=== PATIENT | female | born 1945 | race African-American/Black ===

== ENCOUNTER 2016-08-19 11:12 | Emergency (ER) | payer MEDICARE ==
[~2016-08-19] VITALS: Ht 162.6 cm; Wt 75.0 kg
[~2016-08-19 11:12] MED LIST: ACETAZOLAMID250 MG PO; ADVAIR DISK1 INH; ADVAIR DISK2 IN; AMOXICILLIN500 MG; AMOXICILLIN500 MG PO; ASPIRIN81 MG OR; AVELOX400 MG PO; BIAXIN500 MG OR; BUMETANIDE1 MG PO; CEPHALEXIN500 MG PO; CIPROFLOXACN500 MG PO; CITRACAL + D3 MAXIMU PO; COMBIVENT IN; COUMADIN3 MG PO; DIPYRIDAMOLE25 MG OR; DIPYRIDAMOLE25 MG PO; EC-NAPROSYN375 MG OR; EC-NAPROSYN375 MG PO; FLEXERIL OR; FLUZONE1 M1 IM; FOSAMAX70 MG OR; FOSAMAX70 MG PO; FUROSEMIDE40 MG PO; GLIPIZIDE5 MG OR; GLIPIZIDE5 MG PO; HCTZ PO; HYDROCHLOROT12.5 MG PO; IRON325 MG PO; KLOR-CON 1010 MEQ PO; LASIX 20 MG TAB20 MG PO; LISINOPRIL5 MG PO; LORTAB 10 PO; LOSARTAN POTASS50 MG PO; METFORMIN1000 MG PO; METFORMIN500 M1 OR; METFORMIN500 MG PO; NYSTATIN100000 M3 TOP; ONDANSETRON HCL4 MG PO; PRAVASTATIN SOD20 MG PO; PRAVASTATIN20 MG PO; PREDNISONE20 MG; PREVACID15 M1 OR; PRILOSEC20 MG/CAP PO; PROAIR HFA IN; SELENIUM SUL1 % EX; SPIRIVA HANDIHALER IN; SPIRONOLACT25 MG PO; TRIAMT PO; TYLENOL # 31 TAB PO; ULTRAM50 M1 PO; WARFARIN4 MG PO; ZAROXOLYN2.5 M1 PO; ZPAK PO; ZYLOPRIM100 MG PO; [UNRECOGNIZED DRUG - OTHER]; [UNRECOGNIZED DRUG - SUPPLY]; [UNRECOGNIZED DRUG - SUPPLY] NAS; tylenol#3 PO
[2016-08-19] MEDS ORDERED: LORTAB 5-325 MG1 TAB PO (14:29)
[2016-08-19] MEDS ORDERED: EC-NAPROSYN500 MG PO (14:29)
[2016-08-19 14:34] VITALS: BP 136/64
== END 2016-08-19 14:51 | disposition home or self-care (01) ==
LOC: ED 11:12
DX: S39.012A Strain of muscle, fascia and tendon of lower back, initial encounter (principal)

== ENCOUNTER 2016-10-28 13:53 | Emergency (ER) | payer MEDICARE ==
[~2016-10-28] VITALS: Ht 162.6 cm; Wt 77.3 kg
[~2016-10-28 13:53] MED LIST changes: +EC-NAPROSYN500 MG PO; +LORTAB 5-325 MG1 TAB PO
[2016-10-28 15:15] LABS: HEMOGLOBIN 10.5 g/dl (12.0-16.0); IMMATURE GRANULOCYTES 0.4 % (0.0-1.0); MEAN CELL VOLUME 78.7 fL CALC (80.0-100.0); MEAN CORPUSCULAR HGB 20.2 pG CALC (26.0-32.0); MEAN CORPUSCULAR HGB CONC 25.6 g/L CALC (32.0-36.0); NEUT# 3.67 thou/uL (2.00-7.15); RED BLOOD COUNT 5.21 mill/uL (4.20-5.60); RED CELL DISTRI WIDTH 26.6 % (11.5-15.5)
[2016-10-28] MEDS ORDERED: HYDROCHLOROT12.5 M1 PO (15:19)
[2016-10-28 15:28] LABS: ALBUMIN 3.4 g/dL (3.2-5.0); BILIRUBIN, TOTAL 2.5 mg/dL (0.0-1.4); CALCIUM 8.8 mg/dL (8.4-10.2); CREATININE 2.2 mg/dL (0.5-1.0); POTASSIUM 3.9 mmol/l (3.5-5.1); TOTAL PROTEIN 7.3 g/dL (6.3-8.2)
[2016-10-28 15:33] LABS: INTERNATIONAL NORMALIZED RATIO 1.7 RATIO (0.7-1.3); PROTHROMBIN TIME 19.6 SECONDS (9.0-12.5)
[2016-10-28 18:50] VITALS: BP 102/61
== END 2016-10-28 18:50 ==
LOC: ED 13:53 → ED-I 15:30 → ED 18:50
PROVIDERS: Emergency Medicine
DX: I82.621 Acute embolism and thrombosis of deep veins of right upper extremity (principal); I12.9 Hypertensive chronic kidney disease with stage 1 through stage 4 chronic kidney disease, or unspecified chronic kidney disease; N18.9 Chronic kidney disease, unspecified; R22.31 Localized swelling, mass and lump, right upper limb; R94.31 Abnormal electrocardiogram [ECG] [EKG]
CPT/HCPCS: J1650

== ENCOUNTER 2016-11-04 11:18 | Inpatient (IN) | payer MEDICARE ==
[~2016-11-04] VITALS: Ht 160 cm; Wt 80.0 kg
[~2016-11-04 11:18] MED LIST changes: +HYDROCHLOROT12.5 M1 PO
[2016-11-04 11:41] LABS: HEMOGLOBIN 9.8 g/dl (12.0-16.0); IMMATURE GRANULOCYTES 0.4 % (0.0-1.0); MEAN CELL VOLUME 81.3 fL CALC (80.0-100.0); MEAN CORPUSCULAR HGB 20.4 pG CALC (26.0-32.0); MEAN CORPUSCULAR HGB CONC 25.1 g/L CALC (32.0-36.0); NEUT# 3.17 thou/uL (2.00-7.15); RED BLOOD COUNT 4.8 mill/uL (4.20-5.60); RED CELL DISTRI WIDTH 27.2 % (11.5-15.5)
[2016-11-04 11:55] LABS: INTERNATIONAL NORMALIZED RATIO 1.9 RATIO (0.7-1.3); PROTHROMBIN TIME 21.1 SECONDS (9.0-12.5)
[2016-11-04 11:57] LABS: ALBUMIN 3.5 g/dL (3.2-5.0); BILIRUBIN, TOTAL 1.7 mg/dL (0.0-1.4); CALCIUM 8.8 mg/dL (8.4-10.2); CREATININE 1.2 mg/dL (0.5-1.0); POTASSIUM 4.7 mmol/l (3.5-5.1); TOTAL PROTEIN 7.3 g/dL (6.3-8.2)
[2016-11-04] MEDS ORDERED: COUMADIN4 MG PO (12:30)
[2016-11-04 14:26] LABS: URINE BILIRUBIN - DIPSTICK NEGATIVE (NEGATIVE); URINE BLOOD DIPSTICK NEGATIVE (NEGATIVE); URINE CLARITY CLEAR; URINE COLOR YELLOW; URINE GLUCOSE - DIPSTICK NEGATIVE (NEGATIVE); URINE KETONE NEGATIVE (NEGATIVE); URINE LEUK ESTERASE NEGATIVE (NEGATIVE); URINE NITRITE - DIPSTICK NEGATIVE (Negative); URINE PH 8.5 (4.5-8.0); URINE PROTEIN - DIPSTICK TRACE mg/dL (NEG-TRACE)
[2016-11-04 15:55] VITALS: BP 123/52
[2016-11-04] MEDS ORDERED: LASIX 20 MG TAB20 MG PO (16:47)
[2016-11-04 19:20] VITALS: BP 115/62
[2016-11-04 23:55] VITALS: BP 120/62
[2016-11-05 05:00] VITALS: BP 120/67
[2016-11-05 06:06] LABS: HEMATOCRIT 44.5 % (37.0-47.0); HEMOGLOBIN 10.6 g/dl (12.0-16.0); IMMATURE GRANULOCYTES 0.4 % (0.0-1.0); MEAN CELL VOLUME 84.6 fL CALC (80.0-100.0); MEAN CORPUSCULAR HGB 20.2 pG CALC (26.0-32.0); MEAN CORPUSCULAR HGB CONC 23.8 g/L CALC (32.0-36.0); NEUT# 3.1 thou/uL (2.00-7.15); RED BLOOD COUNT 5.26 mill/uL (4.20-5.60); RED CELL DISTRI WIDTH 27.1 % (11.5-15.5)
[2016-11-05 06:22] LABS: CALCIUM 9.2 mg/dL (8.4-10.2); CREATININE 1.2 mg/dL (0.5-1.0); POTASSIUM 4.5 mmol/l (3.5-5.1)
[2016-11-05 06:45] LABS: INTERNATIONAL NORMALIZED RATIO 1.8 RATIO (0.7-1.3); PROTHROMBIN TIME 20.8 SECONDS (9.0-12.5)
[2016-11-05 08:35] VITALS: BP 139/69
[2016-11-05 16:20] VITALS: BP 132/69
[2016-11-05 20:10] VITALS: BP 100/65
[2016-11-06] VITALS (7 sets, daily range): BP systolic 92–118; BP diastolic 57–70
[2016-11-06 05:29] LABS: INTERNATIONAL NORMALIZED RATIO 2.5 RATIO (0.7-1.3); PROTHROMBIN TIME 28.8 SECONDS (9.0-12.5)
[2016-11-06 11:57] LABS: CALCIUM 8.7 mg/dL (8.4-10.2); CREATININE 1.2 mg/dL (0.5-1.0)
[2016-11-07 04:53] VITALS: BP 98/61
[2016-11-07 05:21] LABS: HEMATOCRIT 40.2 % (37.0-47.0); HEMOGLOBIN 9.8 g/dl (12.0-16.0); IMMATURE GRANULOCYTES 0.4 % (0.0-1.0); MEAN CELL VOLUME 84.8 fL CALC (80.0-100.0); MEAN CORPUSCULAR HGB 20.7 pG CALC (26.0-32.0); MEAN CORPUSCULAR HGB CONC 24.4 g/L CALC (32.0-36.0); NEUT# 2.82 thou/uL (2.00-7.15); RED BLOOD COUNT 4.74 mill/uL (4.20-5.60); RED CELL DISTRI WIDTH 26.8 % (11.5-15.5)
[2016-11-07 05:27] LABS: INTERNATIONAL NORMALIZED RATIO 2.6 RATIO (0.7-1.3); PROTHROMBIN TIME 30.1 SECONDS (9.0-12.5)
[2016-11-07 05:28] LABS: CALCIUM 8.5 mg/dL (8.4-10.2); CREATININE 1.1 mg/dL (0.5-1.0); POTASSIUM 4.2 mmol/l (3.5-5.1)
[2016-11-07 07:44] VITALS: BP 133/63
[2016-11-07 11:01] VITALS: BP 110/64
[2016-11-07] MEDS ORDERED: COUMADIN4 MG PO (11:16)
[2016-11-07] MEDS ORDERED: LEVAQUIN500 MG PO (11:16)
== END 2016-11-07 13:19 | DRG 190 ==
LOC: ENPENDDIS → ED 11:18 → ED-I 11:46 → ED 14:44 → MS2 14:45
PROVIDERS: Emergency Medicine; Internal Medicine; ADMIT Internal Medicine; ATTEND Internal Medicine
DX: J44.0 Chronic obstructive pulmonary disease with (acute) lower respiratory infection (principal); J18.9 Pneumonia, unspecified organism; E11.22 Type 2 diabetes mellitus with diabetic chronic kidney disease; I13.0 Hypertensive heart and chronic kidney disease with heart failure and stage 1 through stage 4 chronic kidney disease, or unspecified chronic kidney disease; I50.32 Chronic diastolic (congestive) heart failure; Z99.81 Dependence on supplemental oxygen; N18.3 Chronic kidney disease, stage 3 (moderate); E78.5 Hyperlipidemia, unspecified; I48.91 Unspecified atrial fibrillation; R53.81 Other malaise; Z79.01 Long term (current) use of anticoagulants; Z86.718 Personal history of other venous thrombosis and embolism; Z79.84 Long term (current) use of oral hypoglycemic drugs; Z87.891 Personal history of nicotine dependence
CPT/HCPCS: Q9967

== ENCOUNTER 2017-01-21 18:38 | Inpatient (IN) | payer MEDICARE ==
[~2017-01-21] VITALS: Ht 160 cm; Wt 69.6 kg
[~2017-01-21 18:38] MED LIST changes: +COUMADIN4 MG PO; +LEVAQUIN500 MG PO
[2017-01-21 20:33] LABS: HEMATOCRIT 45.3 % (37.0-47.0); HEMOGLOBIN 11.9 g/dl (12.0-16.0); IMMATURE GRANULOCYTES 0.3 % (0.0-1.0); MEAN CELL VOLUME 96.4 fL CALC (80.0-100.0); MEAN CORPUSCULAR HGB 25.3 pG CALC (26.0-32.0); MEAN CORPUSCULAR HGB CONC 26.3 g/L CALC (32.0-36.0); NEUT# 1.8 thou/uL (2.00-7.15); RED BLOOD COUNT 4.7 mill/uL (4.20-5.60); RED CELL DISTRI WIDTH 16.7 % (11.5-15.5)
[2017-01-21 20:43] LABS: ALBUMIN 3.7 g/dL (3.2-5.0); ALKALINE PHOSPHATASE 88 u/l (38-126); ANION GAP 12 (6-22 (CALC)); BILIRUBIN, TOTAL 1.5 mg/dL (0.0-1.4); BUN 26 mg/dL (8-23); BUN/CREATININE RATIO 28 (12-20 (CALC)); CARBON DIOXIDE 37 mmol/l (22-30); CHLORIDE 99 mmol/l (95-108); CREATININE 0.9 mg/dL (0.5-1.0); GFR > 60 ML/MIN (>=60 (CALC)); GFR FOR AFR.AMER. > 60 ML/MIN (>=60 (CALC)); GLUCOSE 81 mg/dL (82-115); POTASSIUM 4.9 mmol/l (3.5-5.1); SGOT/AST 23 u/l (9-36); SGPT/ALT 19 u/l (11-66); SODIUM 143 mmol/l (137-146); TOTAL PROTEIN 7.8 g/dL (6.3-8.2)
[2017-01-21 20:55] LABS: MYOGLOBIN 42 ng/mL (0 - 62)
[2017-01-21 22:30] VITALS: BP 146/79
[2017-01-21 22:45] VITALS: BP 152/69
[2017-01-21 23:00] VITALS: BP 147/74
[2017-01-21 23:15] VITALS: BP 140/64
[2017-01-21 23:45] VITALS: BP 135/81
[2017-01-22] VITALS (20 sets, daily range): BP systolic 110–162; BP diastolic 47–83
[2017-01-22 06:05] LABS: INTERNATIONAL NORMALIZED RATIO 1.2 RATIO (0.7-1.3); PROTHROMBIN TIME 12.7 SECONDS (9.0-12.5)
[2017-01-22 07:36] LABS: URINE BILIRUBIN - DIPSTICK NEGATIVE (NEGATIVE); URINE BLOOD DIPSTICK NEGATIVE (NEGATIVE); URINE CLARITY CLEAR; URINE COLOR YELLOW; URINE GLUCOSE - DIPSTICK NEGATIVE (NEGATIVE); URINE KETONE NEGATIVE (NEGATIVE); URINE LEUK ESTERASE NEGATIVE (NEGATIVE); URINE NITRITE - DIPSTICK NEGATIVE (Negative); URINE PH 5.5 (4.5-8.0); URINE PROTEIN - DIPSTICK TRACE mg/dL (NEG-TRACE); URINE UROBILINOGEN - DIPSTICK 0.2 E.U./dL (0.2)
[2017-01-22 10:34] LABS: BUN 25 mg/dL (8-23); BUN/CREATININE RATIO 26 (12-20 (CALC)); CALCIUM 9.1 mg/dL (8.4-10.2); CARBON DIOXIDE 35 mmol/l (22-30); CHLORIDE 101 mmol/l (95-108); GFR 54 ML/MIN (>=60 (CALC)); GFR FOR AFR.AMER. > 60 ML/MIN (>=60 (CALC)); GLUCOSE 105 mg/dL (82-115); SODIUM 144 mmol/l (137-146)
[2017-01-22 10:36] LABS: ANION GAP 13 (6-22 (CALC)); POTASSIUM 5.2 mmol/l (3.5-5.1)
[2017-01-23] VITALS (12 sets, daily range): BP systolic 110–165; BP diastolic 48–94
[2017-01-23 05:43] LABS: HEMATOCRIT 40.7 % (37.0-47.0); HEMOGLOBIN 11.2 g/dl (12.0-16.0); IMMATURE GRANULOCYTES 1.1 % (0.0-1.0); MEAN CELL VOLUME 92.9 fL CALC (80.0-100.0); MEAN CORPUSCULAR HGB 25.6 pG CALC (26.0-32.0); MEAN CORPUSCULAR HGB CONC 27.5 g/L CALC (32.0-36.0); NEUT# 3.12 thou/uL (2.00-7.15); RED BLOOD COUNT 4.38 mill/uL (4.20-5.60); RED CELL DISTRI WIDTH 16.5 % (11.5-15.5)
[2017-01-23 05:45] LABS: BUN 28 mg/dL (8-23); BUN/CREATININE RATIO 28 (12-20 (CALC)); CALCIUM 8.7 mg/dL (8.4-10.2); CHLORIDE 96 mmol/l (95-108); GFR 54 ML/MIN (>=60 (CALC)); GFR FOR AFR.AMER. > 60 ML/MIN (>=60 (CALC)); GLUCOSE 136 mg/dL (82-115); INTERNATIONAL NORMALIZED RATIO 1.4 RATIO (0.7-1.3); PROTHROMBIN TIME 15.6 SECONDS (9.0-12.5); SODIUM 142 mmol/l (137-146)
[2017-01-23 05:50] LABS: ANION GAP 11 (6-22 (CALC)); POTASSIUM 5.2 mmol/l (3.5-5.1)
[2017-01-23 05:52] LABS: CARBON DIOXIDE 40 mmol/l (22-30)
[2017-01-24 04:25] VITALS: BP 159/67
[2017-01-24 08:48] VITALS: BP 148/66
[2017-01-24 09:29] LABS: INTERNATIONAL NORMALIZED RATIO 1.8 RATIO (0.7-1.3); PROTHROMBIN TIME 20.1 SECONDS (9.0-12.5)
[2017-01-24 11:37] VITALS: BP 151/62
[2017-01-24] MEDS ORDERED: MEDDOSEPAK PO (14:57)
== END 2017-01-24 13:23 | disposition home or self-care (01) | DRG 189 ==
LOC: ED 18:38 → ED-I 20:39 → ED 21:09 → ICU 21:10 → MS2 01-23 14:46
PROVIDERS: Emergency Medicine; ADMIT Internal Medicine; ATTEND Internal Medicine
PROC: 5A09357 Assistance with Respiratory Ventilation, Less than 24 Consecutive Hours, Continuous Positive Airway Pressure (ICD-10-PCS; principal; 2017-01-21)
DX: J96.22 Acute and chronic respiratory failure with hypercapnia (principal); I13.0 Hypertensive heart and chronic kidney disease with heart failure and stage 1 through stage 4 chronic kidney disease, or unspecified chronic kidney disease; I50.22 Chronic systolic (congestive) heart failure; E11.22 Type 2 diabetes mellitus with diabetic chronic kidney disease; J44.1 Chronic obstructive pulmonary disease with (acute) exacerbation; I27.2 Other secondary pulmonary hypertension; N18.9 Chronic kidney disease, unspecified; E78.5 Hyperlipidemia, unspecified; I48.91 Unspecified atrial fibrillation; I08.0 Rheumatic disorders of both mitral and aortic valves; R79.1 Abnormal coagulation profile; Z86.718 Personal history of other venous thrombosis and embolism; Z99.81 Dependence on supplemental oxygen; Z87.891 Personal history of nicotine dependence; Z79.01 Long term (current) use of anticoagulants

== ENCOUNTER 2017-05-03 10:31 | Inpatient (IN) | payer MEDICARE ==
[~2017-05-03] VITALS: Ht 160 cm; Wt 78.5 kg
[2017-05-03] VITALS (7 sets, daily range): BP systolic 107–148; BP diastolic 56–77
[~2017-05-03 10:31] MED LIST changes: +MEDDOSEPAK PO
--- NOTE | 2017-05-03 10:43 | NUR ---
PATIENT TO ROOM VIA WHEELCHAIR AND PHYSICIAN AT BEDSIDE FOR EVALUATION
--- NOTE | 2017-05-03 10:45 | NUR ---
PT SPEAKING IN COMPLETE SENTENCES WITH NO DIFFICULTY. PT DENIES ANY CP AT THIS TIME. SAO2 NOTED AT 79% ON [address] FONSECA TOLD HER TO USE 3 L NC. SAO2 INCREASED TO 82% ON 3 L NC. LS DIMINISHED BILATERALLY AND CRACKLES/WHEEZES NOTED. RT AT BEDSIDE FOR ABG AND NEB TX X 3. WILL COTINUE TO MONITOR.
[2017-05-03 11:02] LABS: HEMATOCRIT 42.8 % (37.0-47.0); HEMOGLOBIN 11.5 g/dl (12.0-16.0); IMMATURE GRANULOCYTES 0.3 % (0.0-1.0); MEAN CELL VOLUME 100.9 fL CALC (80.0-100.0); MEAN CORPUSCULAR HGB 27.1 pG CALC (26.0-32.0); MEAN CORPUSCULAR HGB CONC 26.9 g/L CALC (32.0-36.0); NEUT# 2.66 thou/uL (2.00-7.15); RED BLOOD COUNT 4.24 mill/uL (4.20-5.60); RED CELL DISTRI WIDTH 15.1 % (11.5-15.5)
[2017-05-03] MEDS ORDERED: TYLENOL # 31 TA1 PO (11:06)
--- NOTE | 2017-05-03 11:08 | NUR ---
PT PLACED ON BIPAP. RT AND MD AT [facility]. PT DENIES ANY CHEST PAIN AT THIS TIME.
--- NOTE | 2017-05-03 11:11 | NUR ---
PT. PLACED ON BIPAP DUE TO RESPIRATORY DISTRESS.
--- NOTE | 2017-05-03 11:32 | NUR ---
SAO2 95% ON BIPAP. PT RESTING COMFORTABLY. PT AND HUISBAND AWARE OF PLAN OF CARE. CALL LEVIN WITHIN REACH.
--- NOTE | 2017-05-03 11:48 | NUR ---
SAO2 96% ON BIPAP. HR 82, BP 100/62. PT RESTING COMFORTABLY IN STRETCHER. WILL COTINUE TO MONITOR.
[2017-05-03 11:52] LABS: ALBUMIN 3.8 g/dL (3.2-5.0); BILIRUBIN, TOTAL 1.2 mg/dL (0.0-1.4); CREATININE 1.2 mg/dL (0.5-1.0); POTASSIUM 5.1 mmol/l (3.5-5.1); TOTAL PROTEIN 7.3 g/dL (6.3-8.2)
--- NOTE | 2017-05-03 12:20 | NUR ---
PT IN STRETCHER WITH HOB ELEVATED SAO2 94% ON BIPAP. AT BEDSIDE/ PT DENIES ANY NEEDS AT THIS TIME. CALL LEVIN WITHIN REACH.
--- NOTE | 2017-05-03 12:50 | NUR ---
RT AT BEDSIDE FOR REPEAT ABG.
--- NOTE | 2017-05-03 13:34 | NUR ---
PT RESTING WITH EYES CLOSED SAO2 94% ON BIPAP. PT AWAKENS TO VERBAL STIMULI AND IS A&O X 3. PT DENIES ANY PAIN AND "FEELS BETTER".
--- NOTE | 2017-05-03 13:54 | NUR ---
RT AT BEDSIDE TO RE-DRAW ABG.
--- NOTE | 2017-05-03 14:30 | NUR ---
PT RESTING COMFORTABLY IN STRETCHER WITH HOB ELEVATED. PT FERMIN KE AND ALERT, TOLERATING BIPAP MASK WELL. SA02 95% ON BIPAP. AWARE OF WAIT TIME.
--- NOTE | 2017-05-03 14:45 | NUR ---
AT BEDSIDE, PT REMOVED FROM BIPAP BY DR FORREST. PT DENIES ANY SOB OR PAIN AT THIS TIME. 3 L NC PLACED ON PT AND SA02 95%. PT SPEAKING CLEARLY AND IN FULL SENTENCES. PT REQUESTING SOMETHING TO EAT. WILL CONTINUE TO MONITOR.
--- NOTE | 2017-05-03 14:56 | NUR ---
SBAR PRINTED TO FLOOR
--- NOTE | 2017-05-03 15:40 | NUR ---
REPORT CALLED TO CESARIO ARRIOLA PT TO BE TRANSPORTED TO ICU IN 15 MINS.
--- NOTE | 2017-05-03 16:02 | NUR ---
Admission Note Report Given to: CESARIO ARRIOLA LPN Transported by: Wheelchair X Stretcher Transported with: X Nurse Transporter X Patent IV X O2 X Manager Truck
--- NOTE | 2017-05-03 16:05 | NUR ---
PT ADMITTED TO ICU BED 8 VIA STRETCHER FROM ER, PT ALERT AND ORIENTED WITH SOME HEARING DEFICIT NOTED, PT ABLE TO STAND OFF STRETCHER WITH 2 MOD ASSIST, TO SCALE, (KNEES BUCKLED WITH ASSIST ABLE TO MAINTAIN STANDING) THEN TRANSFERRED TO BED, REPOSITIONED FOR COMFORT, PT WEARING ADULT BRIEF, BUT DENIES BEING COMPLETELY INCONTINENT, LUNGS ARE DIMINSHED BUT CLEAR WITH NO SHORTNESS OF BRETAH OR DISTRESS NOTED, O2 AT 3L VIA NC, WITH PT ADMITTING TO BEING O2 DEPENDENT AT HOME FOR "ABOUT A YEAR" ABD SOFT BS ACTIVE WITH LAST BM YESTERDAY PER PT, STATES SHE HADN'T BEEN FEELING GREAT FOR ABOUT A WEEK, WITH COUGHING AND RECENTLY FELT WEAK WITHA FEW FALLS SO "MY TOLD ME I NEEDED TO COME TO THE HOSPITAL" SOME TRACE EDEMA NOTED TO BILATERAL LE WITH PPPB BUT WEAK, BP STABLE TELE READING SR-ST RATE 90-120, SAFETY MEASURES INTRODUCED, ORIENTED TO ROOM AND UNIT, ALL MONITORING EQUIPMENT EXPLAINED PRIOR TO APPLICATION. CALL LEVIN WITHIN REACH, EASILY VISIBLE FROM NURSES STATION FOR SAFETY.
--- NOTE | 2017-05-03 17:05 | NUR ---
PT FOUND WITH O2 OFF, SATS 55-60% QUICKLY RECOVERS WHEN O2 REAPPLIED, REMINDED TO THE IMPORTANCE OF KEEPING O2 IN HER NOSE, VERBALIZES UNDERSTANDING, HAS MOIST COUGH, ENCOURGAED TO PROVIDE SPECIMEN IF POSSIBLE, CALL LEVIN REMAINS WITHIN REACH
[2017-05-03 18:05] LABS: PROTHROMBIN TIME 11.7 SECONDS (9.0-12.5)
--- NOTE | 2017-05-03 18:10 | NUR ---
PT'S AT BEDSIDE
--- NOTE | 2017-05-03 19:10 | NUR ---
awake. denies resp distress. o2 cont per nc. diminished breath sounds bilat. orthopedic physical therapist shows sinus tach pacs. #22 lac saline lock. po fluids taken fair. voids incont. fall precautions cont. @ bedside.
--- NOTE | 2017-05-03 22:00 | NUR ---
awake. no resp diff. has freq loose nonprod cough. monitoring engineer shows sinus rhythm.
[2017-05-04] VITALS (15 sets, daily range): BP systolic 102–133; BP diastolic 53–77
--- NOTE | 2017-05-04 00:10 | NUR ---
lab here. blood drawn.
--- NOTE | 2017-05-04 02:00 | NUR ---
EYES CLOSED. NO DISTRESS. HAS FREQ LOOSE NONPROD COUGH.
--- NOTE | 2017-05-04 04:00 | NUR ---
resting quietly. no distress. monitor and storage bin tender shows sinus rhythm pacs.
[2017-05-04 05:11] LABS: URINE BILIRUBIN - DIPSTICK NEGATIVE (NEGATIVE); URINE BLOOD DIPSTICK NEGATIVE (NEGATIVE); URINE COLOR YELLOW; URINE GLUCOSE - DIPSTICK NEGATIVE (NEGATIVE); URINE KETONE NEGATIVE (NEGATIVE); URINE LEUK ESTERASE NEGATIVE (NEGATIVE); URINE NITRITE - DIPSTICK NEGATIVE (Negative); URINE PROTEIN - DIPSTICK NEGATIVE (NEG-TRACE); URINE SPECIFIC GRAVITY 1.025; URINE UROBILINOGEN - DIPSTICK 0.2 E.U./dL (0.2)
[2017-05-04 05:13] LABS: URINE CLARITY CLEAR
--- NOTE | 2017-05-04 06:00 | NUR ---
lab here. blood drawn.
[2017-05-04 06:25] LABS: HEMATOCRIT 42.7 % (37.0-47.0); HEMOGLOBIN 11.5 g/dl (12.0-16.0); MEAN CELL VOLUME 100.5 fL CALC (80.0-100.0); MEAN CORPUSCULAR HGB 27.1 pG CALC (26.0-32.0); MEAN CORPUSCULAR HGB CONC 26.9 g/L CALC (32.0-36.0); RED BLOOD COUNT 4.25 mill/uL (4.20-5.60)
[2017-05-04 06:40] LABS: CALCIUM 9.1 mg/dL (8.4-10.2); CHOLESTEROL HDL RATIO 2.6 (<4.4 (CALC)); CREATININE 1.2 mg/dL (0.5-1.0); INTERNATIONAL NORMALIZED RATIO 1.1 RATIO (0.7-1.3); PROTHROMBIN TIME 12.5 SECONDS (9.0-12.5)
[2017-05-04 06:44] LABS: POTASSIUM 5.4 mmol/l (3.5-5.1)
[2017-05-04] MEDS ORDERED: WARFARIN3 MG PO (07:30)
--- NOTE | 2017-05-04 07:30 | NUR ---
PT SITTING UP ON BEDSIDE COMMODE, ASSISTED BACK TO BED AFTER SELF KIARA CARE PROVIDED, REPOSITIONED FOR COMFORT, AM ASSESSMENT COMPLETED, PT IS HARD OF HEARING, VS STABLE, TELE READING SR RATE 70-80'S, PT HAS SOME EDEMA NOTED TO BLE, PPPB, SAFETY MEASURES REINFORCED, CALL LEVIN WITHIN REACH. ENCOURGAED TO CALL FOR ANY NEEDED ASSISTANCE.
--- NOTE | 2017-05-04 07:55 | NUR ---
SET UP ASSIST PROVIDED FOR AM MEAL, OPENED APPLE JUICE PER PT REQUEST, DECLINES MILK, CALL LEVIN WITHIN REACH.
--- NOTE | 2017-05-04 08:35 | NUR ---
ATTEMPTS TO GET PT TO TAKE MEDICATIONS UNSUCCESSFUL, PT AROUSE TO LOUD VERBAL STIMULATION, AROUSES AND STATES SHE WANTS A RAG TO WASH OUT HER MOUTH PRIOR TO TAKING MEDS, MOIST COOL WASHRAG PROVIDED, PT STATES ITS COLD, WHEN ASKED IF SHE WANTS A WARM RAG PT STATES YEAH THEN CLOSES EYES AGAIN, WHEN PROVIDED WITH WARM WASH RAG PT STATES "I'M ABOUT TIRED OF YOU" EDUCATED REGARDING TAKING MEDICATIONS AND THE TIME ORDERED, PT CLOSES EYES AGAIN,
--- NOTE | 2017-05-04 09:29 | NUR ---
MD AT BEDSIDE EARLIER, BP 152/74 PULSE OX 97%, TELE READING SR RATE IN THE 80-90'S, NODS OFF EASILY BUT AROUSES TO LOUD VERBAL STIMULI AND PAINFUL STIMULI, PT REMAINS DIFFICULT TO AROUSE, THEN ATTEMPTS TO SIT UP ON EDGE OF BED AND STAND, ASSIST PROVIDED PT HAS POOR BALANCE WITH UNSTEADY STANCE, BACK TO BED WITH MOD ASSIST, RT AT BEDSIDE, ABG ORDERED AND COMPLETED AT THIS TIME
--- NOTE | 2017-05-04 10:15 | NUR ---
PT AROUSES TO VERBAL STIMULI, BUT NODS OFF EASILY, VS REMAIN STABLE, DECLINED AM MEAL, CALL LEVIN WITHIN REACH
--- NOTE | 2017-05-04 11:13 | NUR ---
SPOUSE CURRENTLY AT BEDSIDE, PT REMAINS DROWSY BUT AROUSES AND TALKS TO SPOUSE INTERMITTENLY, PT GETS AGGRAVATED WITH SPOUSE AT BEDSIDE, ACCU CHECK COMPLETED BS 78, GRAPE JUICE PROVIDED PER PT REQUEST. WILLMONITOR INTAKE
--- NOTE | 2017-05-04 11:36 | NUR ---
SET UP ASSIST PROVIDED FOR AFTERNOON MEAL, ASSIST OFFERED, SPOUSE AT BEDSIDE VERBALIZES HE WILL HELP HER.
--- NOTE | 2017-05-04 12:31 | NUR ---
WITH SPOUSE ASSIST PT ATE 75% OF MEAL, CONTINUES TP HAVE WET COUGH, COMMERCIAL ARTIST OF ANTYTHING OTHER THAN CLEAR SECRETIONS, CALL LEVIN WITHIN REACH
--- NOTE | 2017-05-04 13:35 | NUR ---
PT DOZING INTERMITTENTLY, VS STABLE CONTINEUS TO TOLERATE NC, CALL LEVIN WITHIN REACH
--- NOTE | 2017-05-04 14:46 | NUR ---
PT OOB TO BSC , INCONTINENT OF LARG AMOUNT URINE, KIARA CARE PROVIDED AND LINENS ON BED CHANGED, BACK TO BED WITH 2 MOD ASSIST, CALL LEVIN WITHIN REACH
--- NOTE | 2017-05-04 16:25 | NUR ---
PT MORE AWAKE AND RESTING IN BED, NOT COOPERASTIVE WITH CASE MGMT WHO WAS AT BEDSIDE EARLIER, CALL LEVIN WITHIN REACH, WILL CONTINUE TO MONITOR.
--- NOTE | 2017-05-04 17:40 | NUR ---
SET UP ASSIST PROVIDED FOR PM MEAL, CONTINUES TO DOZE INTERMITTENTLY, CALL LEVIN WITHIN REACH
--- NOTE | 2017-05-04 19:10 | NUR ---
awake. denies distress. o2 cont per nc. breath sounds diminished bilat. has loose nonprod cough. cardiac/vascular sonographer shows sinus rhythm pacs. #20 lac saline lock. po fluids taken fair. voids incont. @ bedside. fall precautions cont.
--- NOTE | 2017-05-04 22:00 | NUR ---
awake. incont. pull-up diaper changed. verona care given.
[2017-05-05] VITALS (9 sets, daily range): BP systolic 104–143; BP diastolic 65–77
--- NOTE | 2017-05-05 00:01 | NUR ---
awake. no distress. has freq loose nonprod cough. business instructor shows sinus rhythm pacs pvcs.
--- NOTE | 2017-05-05 02:00 | NUR ---
awake. watching infomercials. no resp distress. classroom monitor shows sinus rhythm pacs pvcs.
--- NOTE | 2017-05-05 04:00 | NUR ---
remains awake. takes short naps. no distress. o2 cont.
--- NOTE | 2017-05-05 05:15 | NUR ---
lab here. blood drawn.
[2017-05-05 05:44] LABS: HEMATOCRIT 39.7 % (37.0-47.0); HEMOGLOBIN 10.4 g/dl (12.0-16.0); IMMATURE GRANULOCYTES 0.3 % (0.0-1.0); MEAN CELL VOLUME 100.8 fL CALC (80.0-100.0); MEAN CORPUSCULAR HGB 26.4 pG CALC (26.0-32.0); MEAN CORPUSCULAR HGB CONC 26.2 g/L CALC (32.0-36.0); NEUT# 2.38 thou/uL (2.00-7.15); RED BLOOD COUNT 3.94 mill/uL (4.20-5.60); RED CELL DISTRI WIDTH 15.1 % (11.5-15.5)
[2017-05-05 05:53] LABS: BUN 42 mg/dL (8-23); BUN/CREATININE RATIO 40 (12-20 (CALC)); CARBON DIOXIDE 38 mmol/l (22-30); CHLORIDE 101 mmol/l (95-108); GFR 54 ML/MIN (>=60 (CALC)); GFR FOR AFR.AMER. > 60 ML/MIN (>=60 (CALC)); GLUCOSE 78 mg/dL (82-115); MAGNESIUM 2.1 mg/dL (1.6-2.3); SODIUM 144 mmol/l (137-146)
[2017-05-05 05:55] LABS: ANION GAP 11 (6-22 (CALC)); POTASSIUM 5.5 mmol/l (3.5-5.1)
--- NOTE | 2017-05-05 05:58 | NUR ---
no acute change in condition. has slept poorly. took short naps.
[2017-05-05 05:59] LABS: INTERNATIONAL NORMALIZED RATIO 1.1 RATIO (0.7-1.3); PROTHROMBIN TIME 12.2 SECONDS (9.0-12.5)
--- NOTE | 2017-05-05 06:40 | NUR ---
REPORT RECEIVED FROM JAKUB LUCIANO. PT RESTLESS IN BED, AWAKE AND ALERT. REQUESTING TO BRIEFLY SIT AT SIDE OF BED. SPO2 IS ALARMING AT 89%. PT IS MOUTH BREATHING. NEEDS CONTINUAL RE-INFORCEMENT. PULSE OX MONITOR CHANGED TO DIFFERENT FINGER, STILL REMAINS AT 89-93%. PT ASSESSMENT PERFORMED. DENIES PAIN, OR NEEDS. CALL LIGHT WITHIN REACH. SAFETY REVIEWED. INSTRUCTED PT TO CALL FOR ASSISTANCE. STATES UNDERSTANDING.
--- NOTE | 2017-05-05 08:06 | NUR ---
PT SAT-UP FOR BREAKFAST, PANCAKES CUT INTO SMALL PIECES AND JUICE OPENED FOR PATIENT. PT STATES "I CANT HOLD THINGS FOR VERY LONG." ACCUCHECK OBTAINED AT THIS TIME AND IS 64. PT EXHIBITS NO S/S OF HYPOGLYCEMIA, FUNCTIONING APPROPRIATELY, MAKING SENSE, SKIN IS DRY AND INTACT. HEART RATE IS WNL FOR PT. PT ABLE TO FEED SELF. CALL LIGHT WITHIN REACH. INSTRUCTED PT TO CALL FOR ASSISTANCE, PT VERBALIZES UNDERSTANDING.
--- NOTE | 2017-05-05 09:30 | NUR ---
PT ASSISTED FROM THE BED TO THE BSC, CLEANSED AND GIVEN PARTIAL BATH. KIARA CARE INPARTICULAR PROVIDED, R/T INCONTINENCE IN BRIEF. PT GIVEN WASH RAG AND INSTRUCTED TO SELF BATH. PT STATES "HOW ABOUT YOU JUST DO THE JOB YOU'RE SUPPOSED TO DO." PT REMINDED THAT SHE IS ABLE AND STRONGLY ENCOURAGED TO ASSIST IN HER CARE ALSO. PT DENIES ANY SPECIAL ASSISTANCE WHEN AT HOME. SAFELY ASSISTED FROM BSC TO CHAIR WHERE PT INSTRUCTED TO SIT, AND PERFORM THE REST OF MORNING ADL'S. PT CONTINUES TO BE DERROGATORY. CALL LIGHT WITHIN REACH. WILL CONTINUE TO MONITOR.
--- NOTE | 2017-05-05 10:10 | NUR ---
PT ASSISTED TO THE BSC, WITH ONE PERSON TRANSER. PT REQUESTING PILLOW BEHIND BACK. STATES "I MAY BE HERE A WHILE.
--- NOTE | 2017-05-05 11:10 | NUR ---
PHYSICAL THERAPY IN TO EVALUATE PT.
--- NOTE | 2017-05-05 13:00 | NUR ---
PT RESTING WITH EYES CLOSED, WHEN AT REST HER SPO2 IS 92% OR GREATER. WHEN AWAKE AND PT IS RESTLESS HER SPO2 IS 88%.
--- NOTE | 2017-05-05 16:12 | NUR ---
PT RESTING COMFORTABLY IN BED, SPOE IS 94% ON 3L. PT DISPOSITION REMAINS UNPLEASANT AND DERROGATORY STATING "GREAT NOW IM GOING TO PISS THE BED." AFTER GIVING A FRESH CUP OF WATER. PT ENCOURAGED TO BE RESPECTFUL WITH NURSING STAFF, WILL CONTINUE TO REMIND NEEDED.
--- NOTE | 2017-05-05 18:28 | NUR ---
PT FAMILY IN ROOM, WHEN GIVING METFORMIN, ACCUCHECK IS WNL, HOWEVER PT INTAKE IS POOR. PT HAS CONSUMED APPROXIMATELY 25% OF MEAL. PT TELLS HER "I THREW IT UP." AND BOOM STICK MAN ASK QUESTION WHERE VOMIT IS AND PT STATES " I THREW IT OUT!" WHEN QUESTIONED AGAIN, PT YELLS " IT JUST AINT THE WAY I PREPARE MY FOOD." PT DID ACTUALLY INGEST FOOD.
--- NOTE | 2017-05-05 19:30 | NUR ---
awake. no acute resp distress. o2 cont per nc. has loose nonprod cough. wine pasteurizer shows sinus rhythm pacs pvcs. #20 lac saline lock. po fluids takem well. voids incont. diaper changed. fall precautions cont.
--- NOTE | 2017-05-05 21:15 | NUR ---
up to bedside chair with 2 assists.
--- NOTE | 2017-05-05 21:50 | NUR ---
assisted to bed. justin well.
[2017-05-06] VITALS (10 sets, daily range): BP systolic 93–140; BP diastolic 51–77
--- NOTE | 2017-05-06 00:01 | NUR ---
eyes closed. no distress. school lunch monitor shows sinus rhythm pacs pvcs.
--- NOTE | 2017-05-06 02:00 | NUR ---
eyes closed. no apparent distress. o2 cont.
--- NOTE | 2017-05-06 04:30 | NUR ---
lab here. blood drawn.
[2017-05-06 04:47] LABS: HEMATOCRIT 43.5 % (37.0-47.0); HEMOGLOBIN 11.6 g/dl (12.0-16.0); MEAN CELL VOLUME 100.9 fL CALC (80.0-100.0); MEAN CORPUSCULAR HGB 26.9 pG CALC (26.0-32.0); MEAN CORPUSCULAR HGB CONC 26.7 g/L CALC (32.0-36.0); RED BLOOD COUNT 4.31 mill/uL (4.20-5.60); RED CELL DISTRI WIDTH 14.9 % (11.5-15.5)
[2017-05-06 05:18] LABS: PROTHROMBIN TIME 13.1 SECONDS (9.0-12.5)
[2017-05-06 05:19] LABS: INTERNATIONAL NORMALIZED RATIO 1.2 RATIO (0.7-1.3)
--- NOTE | 2017-05-06 06:00 | NUR ---
no acute change in condition this shift.
[2017-05-06 07:51] LABS: CREATININE 1.2 mg/dL (0.5-1.0)
[2017-05-06 07:52] LABS: CALCIUM 9.4 mg/dL (8.4-10.2)
[2017-05-06 07:53] LABS: POTASSIUM 5.7 mmol/l (3.5-5.1)
--- NOTE | 2017-05-06 08:30 | NUR ---
PT DECLINES OFFER TO GET OOB, PT REQUESTING TO STAY IN BED FOR "A LITTLE WHILE LONGER." SPO2 DROPS TO 79-82%. PT HAS NC @3L. HOWEVER, PT IS A MOUTH BREATHER, WITH LITTLE TO KNOW SUCCESS OF RETURN DEMONSTRATION OF BREATHING IN THRU NOSE, OR OUT THRU MOUTH. OXYGEN PLACED IN MOUTH INSTEAD, SPO2 CLIMBS TO 97% PT DROWSY, AND ASLEEP AFTER 5-10 MINUTES OF CHANGING PLACEMENT OF OXYGEN. CALL LIGHT WITHIN REACH. WILL CONTINUE TO MONITOR.
--- NOTE | 2017-05-06 10:10 | NUR ---
LASIX GIVEN AT THIS TIME, ANTICIPATES WILL HELP LOWER POTASSIUM, ANOTHER POTASSIUM LAB DRAW ORDERED AT 1600. PT AND FAMILY STATE UNDERSTANDING.
--- NOTE | 2017-05-06 10:30 | NUR ---
EKG PERFORMED FOR RHYTHM INTERPRETATION. RT NOTIFIED, SR, WITH SINUS ARRYTHMIA.
--- NOTE | 2017-05-06 12:00 | NUR ---
PT ASSISTED OOB WITH ONE PERSON ASSISTANCE AND THE USE OF WALKER. PT IS NOT STRONG IN LEGS YESTERDAY. "GIVING OUT" BUT REGAINING STRENGTH RIGHT AWAY. NOT SURE IF TRULY WEAK OR JUST NOT WANTING TO TRY. AT BS FOR SUPPORTIVE ASSIST PT NOT ABLE TO VOID IN THE BSC, ASSISTED TO BEDSIDE CHAIR AFTER KIARA-CARE PROVIDED.
--- NOTE | 2017-05-06 13:30 | NUR ---
REPORT GIVEN TO MS NURSE BRENDA RN. SPORTS PHYSIOLOGIST CURRENTLY IN ROOM GIVING BED BATH.
--- NOTE | 2017-05-06 17:11 | NUR ---
TRANSFER TO MED-SURG HELD AT THIS TIME R/T POTASSIUM BEING 6.1 MD GIVES TELEPHONE ORDER FOR NOVOLOG 10U IV FOLLOWED BY [id number] AND AN ADDITIONAL ORDER OF KAYEXALATE PO.
--- NOTE | 2017-05-06 17:13 | NUR ---
MED-SURG UNIT NOTIFIED OF DELAY OF TRANSFER
--- NOTE | 2017-05-06 19:00 | NUR ---
REPORT RECEIVED FROM SANFORD THOMPSON RN. PT RESTING IN HIGH-FOWLERS POSITION, DENIES PAIN OR SOB, SR ON MONITOR, HR 80-110 AT THIS TIME, X1 FAMILY MEMBER IN ROOM, ON OXYGEN 3L VIA NC, STATES IS OXYGEN DEPENDENT AT HOME AT 3LPM, LUNGS ARE COARSE ALL THROUGHOUT, WEAK PEDAL PULSED, BLE BRONZIE COLOR, IV SITE IS PATENT FLUSHES WELL, FREE OF REDNESS OR EDEMA, SLIGHTLY HYPOTENSIVE, WILL CONTINUE TO MONITOR BP CLOSELY, EXPLAINED PLAN OF CARE AND MED SCHEDULE, PT APPEARS FORGETFULL, REPEATS THINGS PREVIOUSLY TALKED, OR INTRODUCED NEW TOPICS FAMILY MEMBER STATES THAT SHE ACTS LIKE THAT AT HOME, STATES USES A WALKER AT HOME, OFFERED BSC AND DENIES NEEDS AT THIS TIME, FREQ MOIST COUGH NOTED, NO SPUTUM INSPECTED AT THIS TIME. CALL LEVNI AT REACH.
--- NOTE | 2017-05-06 21:00 | NUR ---
X1 FAMILY MEMBER LEAVING AT THIS TIME.
--- NOTE | 2017-05-06 21:36 | NUR ---
MEDICATED PT WITH PM, PO MEDS, DENIES SWALLOWING PROBLEMS, BUT TOOK A MIN TO SWALLOW PILLS DOWN, OFFERED SOME PUREE OR APPLE SAUCE, BUT REFUSED, STATES "I CAN SWALLOW I JUST NEED TO TAKE MY TIME." NO ASPIRATION NOTED, HOB ELEVATED TO >45 DEGREES, MOIST PRODUCTIVE COUGH NOTED, YELLOW, THICK SPUTUM NOTED, PT DENIES PAIN OR SOB AT THIS TIME, SLIGHTLY HYPOTENSIVE, 94/63, HELD LOPRESSOR DOSE, NOTIFIED DR. LOBATO, ORDERS FOR 500 BOLUS IF BP LOWER THAN 90SBP, AND CONTINUE TO MONITOR FOR NOW, CALL LEVIN AT REACH NO DISTRESS NOTED, WILL MONITOR CLOSELY, OFFERED BSC, DENIES NEEDS.
--- NOTE | 2017-05-06 22:27 | NUR ---
PT RESTING IN SEMI-FOWLERS POSITION, MOUTH BREATHER, MANUAL BP 98/60, ASYMPTOMATIC AT THIS TIME, SR ON MONITOR, HR 72-110, OFFERED BSC AND DENIES NEEDS, NO DISTRESS NOTED, FREQ MOIST PRODUCTIVE COUGH WITH AIRWAY CLEARANCE, SPO2 93%, WILL MONITOR CLOSELY, PT REFUSES TO CHANGE POSITION, EDUCATED ABOUT PRESSURE ULCERS, NEEDS REINFORCEMENT.
--- NOTE | 2017-05-06 22:33 | NUR ---
NOTED SOME JERKING MOVEMENT TO BUE. DENIES NEEDS OR TOILETING, REPORTS NO PAIN OR SOB, WILL CONTINUE TO MONITOR. CALL LEVIN AT REACH.
[2017-05-07] VITALS (10 sets, daily range): BP systolic 101–123; BP diastolic 58–78
--- NOTE | 2017-05-07 02:10 | NUR ---
PT AWAKE, PROVIDED A COMPLETE BED BATH, LINENS AND GOWN CHANGE, DUE TO URINE INCONTINENCE, PT DENIES DIFFICULTY BREATHING, NO DISTRES NOTED, TOLERATED ACTIVITY WELL, FREQ MOIST COUGH NOTED, NO BM NOTED, OFFERED BSC, DENIES NEED, CALL LEVIN AT REACH, INSTRUCTED TO CALL IF NEEDED, VOICES UNDERSTANDING.
--- NOTE | 2017-05-07 04:10 | NUR ---
PT APPEARS TO BE SLEEPING, AROUSES WITH MINIMAL STIMULI, APPEARS FORGETFUL, REORIENTED TO ENVIRONMENT, NO NEURO DEFICITS NOTED AT THIS TIME, OFFERS NO COMPLAINTS, OFFERED BSC, DENIES NEED, VSS, MONITOR SHOWS SR TO SA HR 72-108, DENIES SOB, INSTRUCTED TO CALL IF NEEDED. CALL LEVIN AT REACH.
[2017-05-07 05:30] LABS: INTERNATIONAL NORMALIZED RATIO 1.4 RATIO (0.7-1.3); PROTHROMBIN TIME 15.9 SECONDS (9.0-12.5)
[2017-05-07 05:39] LABS: ALBUMIN 3.4 g/dL (3.2-5.0); BILIRUBIN, TOTAL 0.9 mg/dL (0.0-1.4); CALCIUM 9.3 mg/dL (8.4-10.2); CREATININE 1.4 mg/dL (0.5-1.0); MAGNESIUM 1.8 mg/dL (1.6-2.3); TOTAL PROTEIN 6.6 g/dL (6.3-8.2)
[2017-05-07 05:46] LABS: POTASSIUM 5.5 mmol/l (3.5-5.1)
--- NOTE | 2017-05-07 06:20 | NUR ---
PT REPORTS NO COMPLAINTS AT THIS TIME, RESTING IN BED QUIETLY, VSS, MONITOR SHOWS SR TO SA, HR 69-100, BED SCALE WEIGHT 169.1 LBS, WILL CONTINUE TO MONITOR.
--- NOTE | 2017-05-07 07:30 | NUR ---
PT HARD TO AROUSE AT THIS TIME, PT APPEARS TO BE IN A DEEP SLEEP. VSS, ACCUCHECK IS 86. WILL HOLD BREAKFAST, UNTIL PT AWAKENS. CALL LIGHT WITHIN REACH. WILL CONTINUE TO MOINTOR.
--- NOTE | 2017-05-07 08:37 | NUR ---
PT CONTINUES TO BE GROGGY, REFUSING TO EAT BREAKFAST, VSS.
--- NOTE | 2017-05-07 10:00 | NUR ---
NEW IV SITE OBTAINED AT THIS TIME. #20 RFA SL. PT TOLERATED IV INSERTION WITH MINIMAL DISTRESS. PT MORE AWAKE AND ALERT AT THIS TIME.
--- NOTE | 2017-05-07 10:16 | NUR ---
PT GIVEN KAYEXALATE AND PT IS ABLE TO TOLERATE 1 OF THE 2 BOTTLES. WILL CONTINUE TO ENCOURAGE INTAKE
--- NOTE | 2017-05-07 10:19 | NUR ---
BP READS 88/50 WITH BLOOD PRESSURE CUFF. MANUALLY TAKEN AND IS 110/62. HEART RATE IS 91.
--- NOTE | 2017-05-07 10:45 | NUR ---
PT GIVEN 2ND BOTTLE OF KAYEXALATE.
--- NOTE | 2017-05-07 12:23 | NUR ---
PT REFUSING TO BE CLEANED UP AT THIS TIME, WILL RE-EVALUATE AFTER ABX THERAPY IS FINISHED INFUSING.
--- NOTE | 2017-05-07 13:30 | NUR ---
PT GIVEN TOTAL BED BATH AND CLEANSED, PT HAS EXORIATION FROM BRIEF. PT INFORMED THAT SHE CAN NO LONGER WEAR THE BRIEF BECAUSE OF FURTHER RISK OF SKIN BREAK DOWN. PT STATES UNDERSTANDING. BARRIER CREAM APPLIED.
--- NOTE | 2017-05-07 15:05 | NUR ---
FAMILY AT BS, PT AWAKE AND ALERT. SPO2 IS 92%. NO SOB OR LABORED BREATHING NOTED.
--- NOTE | 2017-05-07 17:45 | NUR ---
REPORT CALLED TO HUSSEIN GUTIERREZ. PT EATING DINNER, AND WILL TRANSFER VIA BED AFTER FINISHED EATING.
--- NOTE | 2017-05-07 19:15 | NUR ---
BEDSIDE REPORT RECEIVED FROM HUSSEIN GUTIERREZ. PT SITTING UP IN BED COMFORTABLY. ALERT AND ORIENTED. DENIES PAIN CURRENTLY. RESPIRATIONS EVEN AND UNLABORED ON OXYGEN. PLAN OF CARE DISCUSSED. PT ENCOURAGED TO VERBALIZE CONCERNS. STATES UNDERSTANDING. SAFETY MEASURES IN PLACE. CALL LIGHT WITHIN REACH.
--- NOTE | 2017-05-07 22:00 | NUR ---
ARRIVED AND AT BEDSIDE. UPON HUSBANDS ARRIVAL PT REQUESTED ROOM CHANGE DUE TO TELEVISION NOT WORKING PROPERLY. TRANSFERED FROM ROOM 270 TO ROOM 262 MS2. PT UP TO BSC AT THIS TIME TO VOID; NO URINE NOTED. WILL TOILET AGAIN PRN.
--- NOTE | 2017-05-07 22:53 | NUR ---
PT UP AGAIN TO BS, THIS TIME SHE DID VOID 175ML.
[2017-05-08] VITALS: BP 102/66
--- NOTE | 2017-05-08 02:08 | NUR ---
PT UP TO BSC AGAIN WITHOUT VOIDING. NO ABDOMINAL DISTENSION NOTED. NO INCONTINENCE. PRODUCTIVE COUGH CONTINUES, NOW WHITE IN COLOR. IV SITE APPEARS HEALTHY AND FLUSHES. TELE IN PLACE. OXYGEN IN PLACE. SAFETY MEASURES REMAIN IN PLACE INCLUDING FALL PRECAUTIONS. CALL LIGHT WITHIN REACH.
[2017-05-08 04:00] VITALS: BP 115/67
[2017-05-08 05:56] LABS: CALCIUM 9.3 mg/dL (8.4-10.2); CREATININE 1.3 mg/dL (0.5-1.0); POTASSIUM 4.7 mmol/l (3.5-5.1)
--- NOTE | 2017-05-08 06:19 | NUR ---
PT INCONTINENT X 2 IN LARGE AMOUNTS. HYGEINE PERFORMED. NO CHANGES IN CONDITION NOTED; STABLE. CALL LIGHT WITHIN REACH.
--- NOTE | 2017-05-08 07:00 | NUR ---
SHIFT CHANGE REPORT FROM NURIA GRIGSBY SLEEPING SOUNDLY, O2 @ 2L IN PLACE VIA NC, BREATHING SHALLOW BUT NON-LABORED, TELE MONITOR IN PLACE, CALL NO SIGN DISCOMFORT, CALL LEVIN IN REACH.
[2017-05-08 07:30] LABS: HEMATOCRIT 42.7 % (37.0-47.0); HEMOGLOBIN 11.5 g/dl (12.0-16.0); IMMATURE GRANULOCYTES 0.2 % (0.0-1.0); MEAN CELL VOLUME 99.1 fL CALC (80.0-100.0); MEAN CORPUSCULAR HGB 26.7 pG CALC (26.0-32.0); MEAN CORPUSCULAR HGB CONC 26.9 g/L CALC (32.0-36.0); NEUT# 2.46 thou/uL (2.00-7.15); RED BLOOD COUNT 4.31 mill/uL (4.20-5.60); RED CELL DISTRI WIDTH 15.2 % (11.5-15.5)
[2017-05-08 08:12] VITALS: BP 115/64
[2017-05-08] MEDS ORDERED: COUMADIN4 MG PO (09:28)
[2017-05-08] MEDS ORDERED: LOPRESSOR25 MG PO (09:28)
[2017-05-08] MEDS ORDERED: DOXYCYCL HYC100 MG PO (09:29)
--- NOTE | 2017-05-08 11:25 | NUR ---
DR LOBATO HERE ROUNDING, ORDERED AMBULATION FOR PT. SPOUSE AT BEDSIDE AT THIS TIME, ALL NEEDS ADDRESSED.
--- NOTE | 2017-05-08 13:00 | NUR ---
AMBULATED FROM ROOM TO END OF HALLWAY AND BACK TO ROOM WITH WALKER AND ASSIST OF ONE, NEEDED PERIODS OF REST FOR THIS ACTIVITY.
[2017-05-08 15:41] VITALS: BP 114/56
[2017-05-08 19:00] VITALS: BP 123/67
--- NOTE | 2017-05-08 20:55 | NUR ---
PT IN HIGHFOWLERS WATCHING TV, RESPIRATIONS EVEN AND UNLABORED ON O2 @2L VIA NC, DENIES PAIN OR DISCOMFORT. ACCUCHECK 145, BED TIME SNACK PROVIDED. TELE IN PLACE MONITORED BY ER. ENCOURAGED TO USE CALL LIGHT FOR ASSISTANCE, MOIST COUGH NOTICED ADMITS TO COUGHING CLEAR SPUTUM. WILL CONTINUE TO MONITOR.
[2017-05-08 23:30] VITALS: BP 131/80
--- NOTE | 2017-05-09 00:10 | NUR ---
INCONTINENT OF LARGE AMOUNT YELLOW URINE, KIARA CARE PROVIDED, CLEAN LINENS AND CLEAN GOWN PROVIDED BY CINDY MOSQUERA, THEN OOB TO BSC WITH STANDBY ASSISTANCE DUE TO URGE TO HAVE BM, BACK TO BED NO BM AT THIS TIME, KIARA CARE PROVIDED. CALL LIGHT IN REACH.
--- NOTE | 2017-05-09 02:29 | NUR ---
OOB TO BSC WITH MINIMAL ASSISTANCE, ATTEMPTING TO HAVE BM, CALL LIGHT IN REACH. A/O X3.
--- NOTE | 2017-05-09 02:35 | NUR ---
BACK TO BED WITH CINDY MOSQUERA'S ASSISTANCE, PT HAD XLARGE FORMED BM. CALL LIGHT IN REACH.
--- NOTE | 2017-05-09 04:00 | NUR ---
RESTING WITH EYES CLOSED, RESPIRATIONS EVEN AND UNLABORED. CALL LIGHT IN REACH.
[2017-05-09 04:26] VITALS: BP 120/74
--- NOTE | 2017-05-09 07:33 | NUR ---
REPORT RECEIVED FROM JAKUB GARRISON. PT SLEEPING AT THIS TIME. CALL LIGHT WITHIN REACH.
[2017-05-09 07:48] LABS: HEMATOCRIT 40.4 % (37.0-47.0); HEMOGLOBIN 10.8 g/dl (12.0-16.0); IMMATURE GRANULOCYTES 0.1 % (0.0-1.0); MEAN CELL VOLUME 101.3 fL CALC (80.0-100.0); MEAN CORPUSCULAR HGB 27.1 pG CALC (26.0-32.0); MEAN CORPUSCULAR HGB CONC 26.7 g/L CALC (32.0-36.0); NEUT# 6.08 thou/uL (2.00-7.15); RED BLOOD COUNT 3.99 mill/uL (4.20-5.60); RED CELL DISTRI WIDTH 15.4 % (11.5-15.5)
[2017-05-09 07:57] VITALS: BP 100/55
[2017-05-09 08:06] LABS: PROTHROMBIN TIME 22.7 SECONDS (9.0-12.5)
[2017-05-09 08:21] LABS: ALBUMIN 3.3 g/dL (3.2-5.0); CALCIUM 9.3 mg/dL (8.4-10.2); CREATININE 1.5 mg/dL (0.5-1.0); POTASSIUM 4.5 mmol/l (3.5-5.1); TOTAL PROTEIN 6.4 g/dL (6.3-8.2)
--- NOTE | 2017-05-09 08:51 | NUR ---
PT SITTING UPRIGHT IN BED. DENIES PAIN. REPORTING OF CONCERNS ENCOURAGED. PLAN OF CARE DISCUSSED. FALL PRECAUTIONS REINFORCED. CALL LIGHT REVIEWED AND IN REACH. PT STATES UNDERSTANDING.
[2017-05-09] MEDS ORDERED: LASIX 20 MG TAB20 MG PO (11:07)
[2017-05-09 11:21] VITALS: BP 100/64
--- NOTE | 2017-05-09 12:33 | NUR ---
PT SITTING UPRIGHT IN BED. FAMILY AT BEDSIDE. PLAN OF CARE, TRANSFER TO REHAB DISCUSSED. PT STATES UNDERSTANDING ADN AGREEMENT.
--- NOTE | 2017-05-09 14:32 | NUR ---
REPORT CALLED TO [facility].
--- NOTE | 2017-05-09 15:10 | NUR ---
Discharge instructions given. Patient verbalizes understanding of same. Discharged in stable condition via [facility] to [facility]. All belongings sent with pt.
[2017-05-10] MEDS ORDERED: BREO ELLIPTA 101 INH (19:46)
== END 2017-05-09 15:10 | DRG 189 ==
LOC: ED 10:31 → ED-I 11:33 → ED 11:33 → ED-I 12:31 → ED 14:49 → ICU 14:50 → MS2 05-07 19:05
PROVIDERS: Emergency Medicine; Internal Medicine; Nurse Practitioner Family; ADMIT Internal Medicine; ATTEND Internal Medicine
PROC: 5A09357 Assistance with Respiratory Ventilation, Less than 24 Consecutive Hours, Continuous Positive Airway Pressure (ICD-10-PCS; principal; 2017-05-03)
DX: J96.22 Acute and chronic respiratory failure with hypercapnia (principal); E11.22 Type 2 diabetes mellitus with diabetic chronic kidney disease; E87.2 Acidosis; E87.5 Hyperkalemia; I13.0 Hypertensive heart and chronic kidney disease with heart failure and stage 1 through stage 4 chronic kidney disease, or unspecified chronic kidney disease; J44.1 Chronic obstructive pulmonary disease with (acute) exacerbation; I50.42 Chronic combined systolic (congestive) and diastolic (congestive) heart failure; I48.91 Unspecified atrial fibrillation; J96.21 Acute and chronic respiratory failure with hypoxia; N18.9 Chronic kidney disease, unspecified; E78.5 Hyperlipidemia, unspecified; M19.90 Unspecified osteoarthritis, unspecified site; I08.0 Rheumatic disorders of both mitral and aortic valves; R53.81 Other malaise; R79.1 Abnormal coagulation profile; I27.20 Pulmonary hypertension, unspecified; D64.9 Anemia, unspecified; Z86.718 Personal history of other venous thrombosis and embolism; Z91.14 Patient's other noncompliance with medication regimen; Z79.01 Long term (current) use of anticoagulants; Z79.84 Long term (current) use of oral hypoglycemic drugs; Z99.81 Dependence on supplemental oxygen; Z87.891 Personal history of nicotine dependence